=== PATIENT | male | born 2000 | race African-American/Black ===

== ENCOUNTER 2020-01-18 21:21 | Emergency (ER) | payer SELFPAY ==
[2020-01-18] MEDS ORDERED: levETIRAcetam 1000 MG/NS 0.75% 1,000 MG/100 ML BAG IV ONE (21:45)
--- NOTE | 2020-01-18 21:45 | Emergency Department Report ---
ED Seizure HPI - General Stated Complaint: SEIZURE Time Seen by Provider: 01/18/20 21:42 Source: patient, EMS Mode of arrival: Stretcher Limitations: No Limitations - History of Present Illness Initial Comments: Patient is a 19-year-old male that presents emergency room with complaints of seizures. Patient states he has a history twice today. Patient states he is having some muscle pains. Patient states his pain is a 3 out of 10. Patient denies chest pain or shortness of breath. Patient denies nausea vomiting. Patient denies loss of control of bladder. Patient denies any injuries. Patient denies head injury. Patient denies any symptoms or problems prior to the seizures. Patient states he smokes cigarettes. Patient also states that he used marijuana. Patient states that the night prior to having a seizure, he was doing cocaine all night and he stayed up all night. Patient states he is sleep deprived. Patient states is the first time is ever done cocaine. Patient states that he had a seizure 1 year ago but did not require be put on medications. Patient states he has had a seizure since. Patient denies recent travel. Patient denies recent international travel. Patient denies exposure to the novel coronavirus. Patient denies sick contacts. Patient denies fever and chills. Patient denies cough. Patient denies diarrhea. Patient denies coming in contact with anybody with symptoms of the novel coronavirus. Complaint: seizure -: Sudden Description of Episode: loss of consciousness, tonic-clonic movement -: second(s) Witnessed:: Yes Trauma: No Seizure History: known seizure disorder Place: home Possible Precipitating Event: none Associated Symptoms: denies other symptoms, malaise. denies: chest pain, confusion, cough, diaphoresis, fever/chills, loss of appetite, rash, shortness o f breath, syncope, weakness, tongue injury, shoulder dislocation - Related Data Allergies Allergy/AdvReac Type Severity Reaction Status Date / Time No Known Allergies Allergy Verified 01/18/20 22:16 ED Review of Systems ROS: Stated complaint: SEIZURE Other details as noted in HPI Constitutional: denies: chills, fever Eyes: denies: eye pain, eye discharge, vision change ENT: denies: ear pain, throat pain Respiratory: denies: cough, shortness of breath, wheezing Cardiovascular: denies: chest pain, palpitations Endocrine: no symptoms reported Gastrointestinal: denies: abdominal pain, nausea, diarrhea Genitourinary: denies: urgency, dysuria Musculoskeletal: myalgia. denies: back pain, joint swelling, arthralgia Skin: denies: rash, lesions Neurological: denies: headache, weakness, paresthesias Psychiatric: denies: anxiety, depression Hematological/Lymphatic: denies: easy bleeding, easy bruising ED Past Medical Hx - Past Medical History Previous Medical History?: No - Surgical History Past Surgical History?: No - Family History Family history: no significant - Social History Smoking Status: Current Every Day Smoker Substance Use Type: Cocaine, Marijuana ED Physical Exam - General Limitations: No Limitations General appearance: alert, in no apparent distress - Head Head exam: Present: atraumatic, normocephalic - Eye Eye exam: Present: normal appearance, PERRL Pupils: Present: normal accommodation - ENT ENT exam: Present: mucous membranes moist - Neck Neck exam: Present: normal inspection - Respiratory Respiratory exam: Present: normal lung sounds bilaterally. Absent: respiratory distress - Cardiovascular Cardiovascular Exam: Present: regular rate, normal rhythm. Absent: systolic murmur, diastolic murmur, rubs, gallop - GI/Abdominal GI/Abdominal exam: Present: soft, normal bowel sounds - Rectal Rectal exam: Present: deferred - Extremities Exam Extremities exam: Present: normal inspection - Back Exam Back exam: Present: normal inspection - Neurological Exam Neurological exam: Present: alert, oriented X3 - Psychiatric Psychiatric exam: Present: normal affect, normal mood - Skin Skin exam: Present: warm, dry, intact, normal color. Absent: rash ED Course Vital Signs 01/18/20 22:05 Temperature 98.0 F Pulse Rate 80 Respiratory 18 Rate Blood Pressure 116/78 O2 Sat by Pulse 99 Oximetry - Reevaluation(s) Reevaluation #1: Patient has not had any seizure activity in the ER. Patient states he is feeling fine except for is just tired and wants to sleep. Patient states he does not feel shaky or tremulous. 01/19/20 00:32 Reevaluation #2: Patient is resting well in the ER. Patient has not had any seizure activity. Patient states time he had his first seizure he was sleep deprived as well. I discussed all results and clinical findings with patient. I discussed plan of care with patient. Patient agrees with plan of care. Patient is stable for discharge. Patient will be discharged home. Patient given discharge instructions. Patient voiced understanding of discharge instructions. 01/19/20 02:41 ED Medical Decision Making - Lab Data Result diagrams: 01/18/20 22:57 01/18/20 22:57 - Radiology Data Radiology results: report reviewed CT head without contrast INDICATION : Seizure TECHNIQUE: Axial imaging performed from the skull apex through the skull base without the use of contrast. All CT examinations performed at this facility utilize dose modulation, iterative reconstruction or weight-based dosing, when appropriate, to reduce radiation dose to as low as reasonably achievable. COMPARISON: None FINDINGS: No acute intracranial hemorrhage or parenchymal abnormality. Ventricles are normal in size and appear symmetric. Soft tissues including the orbits appear normal. No acute osseous ab normality. Sinuses and mastoid air cells are clear. IMPRESSION: No acute abnormality - Medical Decision Making Patient is a 19-year-old male that presents emergency room with seizure x2. Patient had no seizure activity while in the ER. Patient has history of seizure 1 year ago. Patient only has he is very sleep deprived. Patient has a neurologist. Patient was out the night prior to a seizure using cocaine and st aying up all night. Patient rested entire time in the ER. Patient did not have any seizure activity in the ER. Patient given Keppra for seizure prevention. Patient had labs done which were unremarkable except for elevated WBC most likely secondary to the seizure activity and UDS positive for cocaine and marijuana. I instructed the patient to not use cocaine or drugs or alcohol. Patient instructed to follow-up with a neurologist. Patient to avoid driving. Patient given seizure precautions. Patient states he was negative for acute findings. Patient stable for discharge. Patient discharged home. Critical care attestation.: If time is entered above; I have spent that time in minutes in the direct care of this critically ill patient, excluding procedure time. ED Disposition Clinical Impression: Seizure, Cocaine use, Sleep deprivation seizure Disposition: DC-01 TO HOME OR SELFCARE Is pt being admited?: No Does the pt Need Aspirin: No Condition: Stable Instructions: Cocaine Abuse (ED), Non-epileptic Seizures (ED), Recurrent Seizures Adult (ED) Additional Instructions: Patient to follow-up with primary care in 2 to 3 days. Patient to follow-up with neurologist in 2 to 3 days. Patient to avoid drug and alcohol use. Patient to avoid driving. Patient to avoid watching TV, smart phone use, tablet use. Patient to rest. Patient to increase water. Patient to avoid strenuous exercise or heavy lifting until cleared by neurologist. Patient to sleep 8 ho urs/day. Patient to take Tylenol or ibuprofen as needed for pain. Patient to take meds as directed. Patient to return to the ER if condition worsens, changes or new symptoms arise. Referrals: PRIMARY CARE, [Primary Care Provider] - 2-3 Days RAMA DOMINGUEZ MD [Staff Physician] - 2-3 Days Time of Disposition: 03:01
[2020-01-18] MEDS ORDERED: levETIRAcetam 1000 MG/NS 0.75% 0 MG/0 ML BAG IV ONE (22:17)
[2020-01-18 23:29] LABS: Hemoglobin 16.4 gm/dl (11.8-15.2); Mean Corpuscular HGB Conc 34 % (32-34); Mean Corpuscular Volume 91 fl (84-94); Platelet Count 301 K/mm3 (140-440); Red Blood Count 5.27 M/mm3 (3.65-5.03); Red Cell Distribution Width 13.4 % (13.2-15.2)
[2020-01-18 23:53] LABS: Alanine Aminotransferase 39 units/L (7-56); Albumin 5.5 g/dL (3.9-5); BUN/Creatinine Ratio 11; Blood Urea Nitrogen 8 mg/dL (9-20); Calcium 9.9 mg/dL (8.4-10.2); Hemolysis Index 8
--- NOTE | 2020-01-19 00:01 | Cat Scan Report ---
CT head without contrast INDICATION : Seizure TECHNIQUE: Axial imaging performed from the skull apex through the skull base without the use of con trast. All CT examinations performed at this facility utilize dose modulation, iterative reconstruct ion or weight-based dosing, when appropriate, to reduce radiation dose to as low as reasonably achiev able. COMPARISON: None FINDINGS: No acute intracranial hemorrhage or parenchymal abnormality. Ventricles are normal in si ze and appear symmetric. Soft tissues including the orbits appear normal. No acute osseous abnorm ality. Sinuses and mastoid air cells are clear. IMPRESSION: No acute abnormality. Signer Name: Dennis Minor MD Signed: 01/18/2020 11:57 PM Workstation Name: [id number]
[2020-01-19] MEDS ORDERED: levETIRAcetam 1000 MG/NS 0.75% 1,000 MG/100 ML BAG IV ONE (00:14)
[2020-01-19] MEDS ORDERED: SODIUM CHLORIDE 0.9% 1000 ML 1,000 ML IV ONE (00:32)
[2020-01-19 01:44] LABS: Anisocytosis 1+; Basophils % (Manual) 0 % (0.0-1.8); Eosinophils % (Manual) 0 % (0.0-4.3); Monocytes % (Manual) 7.5 % (0.0-7.3); Platelet Estimate Consistent w Auto; Total Cells Counted 200
[2020-01-19 01:57] LABS: Bilirubin,Urine NEG (Negative); Blood,Urine MOD (Negative); Color,Urine Straw (Yellow); Mucus,Urine FEW /HPF; Protein,Urine <15 mg/dL mg/dL (Negative); RBC,Urine < 1.0 /HPF (0.0-6.0); Urobilinogen,Urine < 2.0 mg/dL (<2.0)
[2020-01-19 02:05] LABS: Amphetamine Screen,Urine PRESUMPTIVE NEGATIVE; Benzodiazepines Screen,Urine PRESUMPTIVE NEGATIVE; Cannabinoid Screen,Urine PRESUMPTIVE POSITIVE; Cocaine Screen,Urine PRESUMPTIVE POSITIVE; Methadone Screen,Urine PRESUMPTIVE NEGATIVE; Opiate Screen,Urine PRESUMPTIVE NEGATIVE
[2020-01-19 03:22] VITALS: BP 118/68
== END 2020-01-19 03:22 | disposition home or self-care (01) ==
LOC: ED 21:21
DX: G40.89 Other seizures (principal); F14.90 Cocaine use, unspecified, uncomplicated; F17.200 Nicotine dependence, unspecified, uncomplicated; F12.10 Cannabis abuse, uncomplicated
CPT/HCPCS: 36415; 70450; 80053; 80307; 81001; 85007; 85025; 96374; 99284; J1953; J7030; 80320; G0480